=== PATIENT | female | born 1965 | race Two or more races ===

== ENCOUNTER 2021-12-28 05:50 | Emergency (ER) | payer BC ==
[~2021-12-28] VITALS: Ht 157.5 cm; Wt 61.2 kg
[2021-12-28] MEDS ORDERED: TOPROL XL25 M1 (06:47)
[2021-12-28] MEDS ORDERED: HYDROCHLOROTH12.5 MG (06:47)
[2021-12-28] MEDS ORDERED: NORTRIPTYLINE H25 MG (06:47)
[2021-12-28] MEDS ORDERED: AMBIEN10 MG (06:47)
== END 2021-12-28 10:38 | disposition home or self-care (01) ==
LOC: ER 05:50
DX: R55 Syncope and collapse (principal); Z20.822 Contact with and (suspected) exposure to COVID-19